=== PATIENT | female | born 1990 | race Caucasian/White ===

== ENCOUNTER 2018-11-23 16:07 | Emergency (ER) | payer SELFPAY ==
[2018-11-23] MEDS ORDERED: ONDANSETRON HCL INJ/PF 4 MG/2 ML SDV IV ONE (16:28)
--- NOTE | 2018-11-23 16:29 | ER Document Report ---
ED Medical Screen (RME) - General Chief Complaint: Upper Abdominal Pain Stated Complaint: SHOULDER/BACK PAIN Time Seen by Provider: 11/23/18 16:27 Mode of Arrival: Ambulatory Information source: Patient Notes: Patient presents complaining of right upper quadrant pain that radiates to her back that started yesterday. Patient also reports nausea. No vomiting or fever. Patient is concerned she may be having issues with her gallbladder. I have greeted and performed a rapid initial assessment of this patient. A comprehensive ED assessment and evaluation of the patient, analysis of test r esults and completion of the medical decision making process will be conducted by additional ED providers. TRAVEL OUTSIDE OF THE [place] IN LAST 30 DAYS: No - Related Data Allergies/Adverse Reactions: Penicillins Allergy (Verified 11/23/18 16:13) Physical Exam - Vital signs Vitals: Temp Pulse Resp BP Pulse Ox 98.1 F 76 16 132/80 H 99 11/23/18 16:14 11/23/18 16:14 11/23/18 16:14 11/23/18 16:14 11/23/18 16:14 - Abdominal Tenderness: Tender - Right upper quadrant Course - Vital Signs Vital signs: Temp Pulse Resp BP Pulse Ox 98.1 F 76 16 132/80 H 99 11/23/18 16:14 11/23/18 16:14 11/23/18 16:14 11/23/18 16:14 11/23/18 16:14
[2018-11-23 17:18] LABS: ABSOLUTE EOSINOPHILS # (AUTO) 0.1 10^3/uL (0.0-0.6); ABSOLUTE LYMPHOCYTES (AUTO) 1.8 10^3/uL (0.5-4.7); ABSOLUTE MONOCYTES (AUTO) 0.5 10^3/uL (0.1-1.4); ABSOLUTE NEUT (AUTO) 6.2 10^3/uL (1.7-8.2); BASOPHILS % (AUTO) 0.5 % (0-2); EOSINOPHILS % (AUTO) 1.4 % (0-6); HEMATOCRIT 42.3 % (36.0-47.0); LYMPHOCYTES % (AUTO) 20.7 % (13-45); MEAN CORPUSCULAR HEMOGLOBIN 26.2 pg (27.0-33.4); MEAN CORPUSCULAR VOLUME 79 fl (80-97); MONOCYTES % (AUTO) 6.2 % (3-13); PLATELET COUNT 427 10^3/uL (150-450); RED BLOOD COUNT 5.33 10^6/uL (3.72-5.28); RED CELL DISTRIBUTION WIDTH 14.1 % (11.5-14.0); SEGMENTED NEUTROPHILS % (AUTO) 71.2 % (42-78); TOTAL CELLS COUNTED % (AUTO) 100 %; WHITE BLOOD COUNT 8.8 10^3/uL (4.0-10.5)
--- NOTE | 2018-11-23 17:18 | ER Document Report ---
ED General - General Chief Complaint: Upper Abdominal Pain Stated Complaint: SHOULDER/BACK PAIN Time Seen by Provider: 11/23/18 16:27 Mode of Arrival: Ambulatory TRAVEL OUTSIDE OF THE [place] IN LAST 30 DAYS: No - HPI Notes: 28-year-old female to the emergency department with complaints of right flank pain that radiates into her right upper abdomen and into her right shoulder that began yesterday. States that she also has associated nausea and chills. States that she gets frequent urinary tract infections and does admit to frequency right now. She is currently on her menses so she is unsure if she has had increased blood in her urine. She denies fevers, vomiting, diarrhea, chest pain, shortness of breath, headaches. There is a family history of gallbladder disease and with the right upper quadrant abdominal pain, patient and mother were afraid that she may be having a gallbladder issue. Patient denies worsening pain with fatty foods. She does not drink alcohol. - Related Data Allergies/Adverse Reactions: Penicillins Allergy (Verified 11/23/18 16:13) Past Medical History - General Information source: Patient, Parent - Social History Smoking Status: Never Smoker Frequency of alcohol use: None Drug Abuse: None Family History: Other - gallbladder bladder disease, urinary tract infections. Review of Systems - Review of Systems Constitutional: Chills, Malaise. denies: Fever EENT: No symptoms reported Cardiovascular: denies: Chest pain, Palpitations, Dyspnea, Dizziness Respiratory: denies: Cough, Short of breath Gastrointestinal: Abdominal pain, Nausea. denies: Diarrhea, Vomiting, Black stools, Rectal bleeding Genitourinary: Frequency, Flank pain. denies: Burning, Dysuria, Discharge Female Genitourinary: Vaginal bleeding - Currently on her cycle Musculoskeletal: No symptoms reported Skin: No symptoms reported Neurological/Psychological: No symptoms reported -: Yes All other systems reviewed and negative Physical Exam - Vital signs Vitals: Temp Pulse Resp BP Pulse Ox 98.1 F 76 16 132/80 H 99 11/23/18 16:14 11/23/18 16:14 11/23/18 16:14 11/23/18 16:14 11/23/18 16:14 Interpretation: Normal - General General appearance: Appears well In distress: None - HEENT Head: Normocephalic, Atraumatic Eyes: Normal Pupils: PERRL - Respiratory Respiratory status: No respiratory distress Chest status: Nontender Breath sounds: Normal Chest palpation: Normal - Cardiovascular Rhythm: Regular Heart sounds: Normal auscultation Murmur: No - Abdominal Inspection: Normal Distension: No distension Bowel sounds: Normal Tenderness: Tender - Mild tenderness to palpation over the right upper quadrant with negative Delacruz sign. No guarding, no rebound, no McBurney's point, no right lower quadrant pain.. No: McBurney's point, Delacruz's sign, Guarding, Rebound Organomegaly: No: No organomegaly - Back Back: CVA tenderness - +right-sided CVA tenderness - Neurological Neuro grossly intact: Yes Cognition: Normal Orientation: AAOx4 Whately Coma Scale Eye Opening: Spontaneous What[place] Coma Scale Verbal: Oriented Whately Coma Scale Motor: Obeys Commands Whately Coma Scale Total: 15 Speech: Normal Motor strength normal: LUE, RUE, LLE, RLE Sensory: Normal - Psychological Associated symptoms: Normal mood, Other - Bizarre affect - Skin Skin Temperature: Warm Skin Moisture: Dry Skin Color: Normal Course - Vital Signs Vital signs: Temp Pulse Resp BP Pulse Ox 98.1 F 76 16 132/80 H 99 11/23/18 16:14 11/23/18 16:14 11/23/18 16:14 11/23/18 16:14 11/23/18 16:14 - Laboratory Result Diagrams: 11/23/18 16:30 11/23/18 16:30 Laboratory results interpreted by me: 11/23/18 11/23/18 16:30 16:30 RBC 5.33 H MCV 79 L MCH 26.2 L RDW 14.1 H Urine Protein 30 H Urine Blood LARGE H Ur Leukocyte Esterase MODERATE H - Diagnostic Test Radiology reviewed: Image reviewed, Reports reviewed - Noted negative right upper quadrant ultrasound for gallbladder disease. Also obtained a CT to evaluate for any stone disease. There is no stone disease in the right kidney ureter or bladder. Some small nephrolithiasis in the left kidney. - Transfer of Care Notes: 11/23/18 20:07 Impression: Right flank pain, pyelonephritis. Noted lab work with no leukocytosis, no electrolyte derailment, no acute kidney injury. CT and ultrasound are reassuring. Vital signs are reassuring. We will give Rocephin here and discharge home with Keflex. We will also give pain medicine for pain control as well as antiemetics. I have given strict precautions return if any worsening symptoms such as intractable nausea and vomiting, intractable pain, fevers, weakness, passing out, progressively worsening symptoms. Sent and parents agree with the plan. We will give him information for follow-up with primary care physician in the next week. Noted allergy to penicillinsher reaction is hives and not anaphylaxis. Discharge - Discharge Clinical Impression: Pyelonephritis, Right flank pain Condition: Stable Disposition: HOME, SELF-CARE Instructions: Pyelonephritis (REPLACED BY [facility]), Family Physicians / Practices Additional Instructions: COMPLETE ALL ANTIBIOTICS. RETURN IF INTRACTABLE VOMITING, WORSENING PAIN, FEVERS, OR ANY OTHER CONCERNS. PUSH GOOD FLUIDS SUCH WATER, GATORADE, POWERADE -- AVOID CAFFEINE. FOLLOW UP WITH PRIMARY CARE. Prescriptions: Cephalexin Monohydrate [Keflex 500 mg Capsule] 500 mg PO BID 10 Days #20 capsule Hydrocodone/Acetaminophen [[place] 5-325 mg Tablet] 1 tab PO Q6H #12 tablet Naproxen [Naprosyn] 500 mg PO BID #20 tablet Ondansetron [Zofran Odt 4 mg Tablet] 1 - 2 tab PO Q4H PRN #15 tab.rapdis PRN Reason: For Nausea/Vomiting
[2018-11-23 17:19] LABS: APPEARANCE,URINE CLOUDY; BILIRUBIN,URINE NEGATIVE (NEGATIVE); COLOR,URINE YELLOW; GLUCOSE, URINE NEGATIVE (NEGATIVE); KETONES,URINE NEGATIVE (NEGATIVE); LEUKOCYTE ESTERASE,URINE MODERATE (NEGATIVE); NITRITE,URINE NEGATIVE (NEGATIVE); PROTEIN,URINE 30 mg/dL (NEGATIVE); URINE SPECIFIC GRAVITY 1.019; UROBILINOGEN,URINE NEGATIVE mg/dL (<2.0)
--- NOTE | 2018-11-23 17:25 | RADIOLOGY REPORT (SQ) ---
EXAM DESCRIPTION: U/S ABDOMEN LIMITED W/O DOP COMPLETED DATE/TIME: 11/23/2018 5:15 pm REASON FOR STUDY: ruq pain COMPARISON: None. TECHNIQUE: Dynamic and static grayscale images acquired of the abdomen and recorded on PACS. Additio nal selected color Doppler and spectral images recorded. LIMITATIONS: None. FINDINGS: PANCREAS: Limited visualization due to overlying bowel gas. . No masses. Visualized pa ncreatic duct normal caliber. LIVER: The liver measures 14.1 cm in length, normal size. No masses. Echotexture normal. LIVER VASCULATURE: Normal directional flow of the main portal vein and hepatic veins. GALLBLADDER: No stones. The gallbladder wall measures 1.2 mm, normal wall thickness. No pericholecys tic fluid. ULTRASOUND-DETECTED BECKMAN'S SIGN: Negative. INTRAHEPATIC DUCTS AND COMMON DUCT: CBD measures 3.0 mm in diameter, normal. The intrahepatic ducts normal caliber. No filling defects. INFERIOR VENA CAVA: Normal flow. AORTA: No aneurysm. RIGHT KIDNEY: The right kidney measures 10.1 cm in length, normal size. Normal echogenicity. No al id or suspicious masses. No hydronephrosis. No calcifications. PERITONEAL AND RIGHT PLEURAL SPACE: No ascites or effusions. OTHER: No other significant findings. IMPRESSION: 1. Limited visualization of the pancreas due to overlying bowel gas. 2. Examination is otherwise unremarkable sonographically. TECHNICAL DOCUMENTATION: JOB ID: [id number] [employer]- All Rights Reserved Reading location - IP/workstation name: [email or web address]
[2018-11-23 17:31] LABS: ALANINE AMINOTRANSFERASE 22 U/L (9-52); ALKALINE PHOSPHATASE 65 U/L (38-126); ANION GAP 11 (5-19); ASPARTATE AMINO TRANSFERASE 23 U/L (14-36); BILIRUBIN,DIRECT 0.2 mg/dL (0.0-0.4); BILIRUBIN,TOTAL 0.9 mg/dL (0.2-1.3); BLOOD UREA NITROGEN 14 mg/dL (7-20); CALCIUM 9.6 mg/dL (8.4-10.2); CARBON DIOXIDE 24 mmol/L (22-30); CHLORIDE 105 mmol/L (98-107); GLUCOSE 91 mg/dL (75-110); LIPASE 61.6 U/L (23-300); POTASSIUM 4.3 mmol/L (3.6-5.0); SODIUM 139.8 mmol/L (137-145); TOTAL PROTEIN 8.2 g/dL (6.3-8.2)
[2018-11-23] MEDS ORDERED: NORMAL SALINE 1000 ML 1,000 ML IV ONE (18:23)
[2018-11-23] MEDS ORDERED: KETOROLAC TROMETHAMINE INJ/PF 30 MG/1 ML SDV IV ONE (18:23)
[2018-11-23] MEDS ORDERED: CEFTRIAXONE 1 GM/D5W RTU 1 GM/50 ML RTUPB IV ONE (18:23)
--- NOTE | 2018-11-23 18:46 | RADIOLOGY REPORT (SQ) ---
EXAM DESCRIPTION: CT ABD/PELVIS NO ORAL OR IV COMPLETED DATE/TIME: 11/23/2018 6:34 pm REASON FOR STUDY: flank pain, eval kidney stone COMPARISON: None. TECHNIQUE: CT scan of the abdomen and pelvis performed without intravenous or oral contrast. Images reviewed with lung, soft tissue, and bone windows. Reconstructed coronal and sagittal MPR images revi ewed. All images stored on PACS. All CT scanners at this facility use dose modulation, iterative reconstruction, and/or weight based d osing when appropriate to reduce radiation dose to as low as reasonably achievable (ALARA). [facility]: Dose Right [facility]: CareDose [facility]: Dose Right [facility]: Teradose 4D [facility]: Smart Becual RADIATION DOSE: CT Rad equipment meets quality standard of care and radiation dose reduction techniq ues were employed. CTDIvol: 9.0 mGy. DLP: 507 mGy-cm.mGy. LIMITATIONS: None. FINDINGS: LOWER CHEST: No significant findings. No nodules or infiltrates. NON-CONTRASTED LIVER, SPLEEN, ADRENALS: Evaluation limited by lack of IV contrast. No identified sign ificant masses. PANCREAS: No masses. No peripancreatic inflammatory changes. GALLBLADDER: No identified stones by CT criteria. No inflammatory changes to suggest cholecystitis. RIGHT KIDNEY AND URETER: No suspicious masses. Assessment limited by lack of IV contrast. No signif icant calcifications. No hydronephrosis or hydroureter. LEFT KIDNEY AND URETER: No suspicious masses. Assessment limited by lack of IV contrast. Minimal pe ripheral nephrolithiasis. No hydronephrosis or hydroureter. AORTA AND RETROPERITONEUM: No aneurysm. No retroperitoneal masses or adenopathy. BOWEL AND PERITONEAL CAVITY: No obvious masses or inflammatory changes. No free fluid. APPENDIX: Normal. PELVIS, BLADDER, AND ABDOMINAL WALL:No abnormal masses. No free fluid. Bladder normal. BONES: No significant findings. OTHER: No other significant finding. IMPRESSION: Minimal peripheral left nephrolithiasis. No acute process. COMMENT: Quality ID # [id number]: Final reports with documentation of one or more dose reduction techniques (e.g., Automated exposure control, adjustment of the mA and/or kV according to patient size, use of iterative reconstruction technique) TECHNICAL DOCUMENTATION: JOB ID: [id number] [employer]- All Rights Reserved Reading location - IP/workstation name: [email or web address]
[2018-11-23 20:56] VITALS: BP 115/57
== END 2018-11-23 21:05 | disposition home or self-care (01) ==
LOC: ER 16:07
DX: N12 Tubulo-interstitial nephritis, not specified as acute or chronic (principal); R10.9 Unspecified abdominal pain; R10.10 Upper abdominal pain, unspecified; R10.11 Right upper quadrant pain; M25.511 Pain in right shoulder; R11.0 Nausea; R35.0 Frequency of micturition
CPT/HCPCS: 99284; 96375; 96365; 36415; 83690; 84703; 85025; 80053; 81001; 76705; 74176; J1885; J2405; J7030; J0696